=== PATIENT | male | born 1935 | race Caucasian/White ===

== ENCOUNTER 2017-02-04 17:10 | Observation (INO) | payer MEDICARE ==
[2017-02-04] VITALS (7 sets, daily range): BP systolic 153–221; BP diastolic 70–111; PULSE 90–104; RESP 18–20; TEMP 97.6–98.5; O2SAT 90–98
[~2017-02-04] VITALS: Ht 182.9 cm; Wt 90.5 kg
[2017-02-04] MEDS ORDERED: SODIUM CHLOR 0.9% 1000 ML INJ 1,000 ML IV SCH (17:32)
[2017-02-04] MEDS ORDERED: SODIUM CHLORIDE 0.9% FLUSH 10 ML FLUSH IV FLUSH PRN ×2 (17:45→19:45)
--- NOTE | 2017-02-04 17:46 | PD ---
HPI Chief Complaint: Complaint Time Seen by Provider: 17:33 Travel History International Travel<30 days: No Contact w/Intl Traveler<30days: No Traveled to known affect area: No History of Present Illness HPI Patient is an 81-year-old male who was sent to the emergency room from the [place] for evaluation of renal disease. Patient reports that a few weeks ago, he had hematuria, reports that he had a CT of his abdomen and pelvis 2 weeks ago which was inconclusive. Patient reports that he follow-up with his primary care doctor who ordered blood work, is that he call today as his kidney functions were elevated. Patients PCP Dr. Prieto at the [facility] told him to go the ER for evaluation. Patient with no complaints at this time. [facility] Social History Tobacco Use: No Allergies-Medications (Allergen,Severity, Reaction): Coded Allergies: No Known Allergies (Unverified , 02/04/17) Reported Meds & Prescriptions Reported Meds & Active Scripts Active Reported Nifedipine ER (Nifedipine) 90 Mg Tab 90 Mg PO DAILY Spiriva Handihaler (Tiotropium Inh) 18 Mcg Cap 18 Mcg INH DAILY 1 capsule = 18 mcg Latanoprost Opth Drops (Latanoprost) 0.005% Drops 1 Drop EACH EYE HS Refrigerate until opened. Symbicort Inh (Budesonide/Formoterol Fumarate) 80-4.5 Mcg/Act Aero 2 Puff INH Q12HR Ventolin Hfa 18 GM Inh (Albuterol Sulfate) 90 Mcg/Act Aer 2 Puff INH Q6H PRN Aleve (Naproxen Sodium) 220 Mg Tab 220 Mg PO DAILY PRN Review of Systems General / Constitutional: No: Fever Eyes: No: Visual changes HENT: No: Headaches Cardiovascular: No: Chest Pain or Discomfort Respiratory: No: Shortness of Breath Gastrointestinal: No: Nausea, Vomiting, Diarrhea, Abdominal Pain Genitourinary: No: Urgency, Frequency, Dysuria, Nocturia, Hematuria, Pelvic Pain, Flank Pain Musculoskeletal: No: Pain Skin: No Rash Neurologic: No: Weakness Psychiatric: No: Depression Endocrine: No: Polydipsia Hematologic/Lymphatic: No: Easy Bruising Physical Exam Narrative GENERAL: nad, nontoxic SKIN: Focused skin assessment warm/dry. HEAD: Atraumatic. Normocephalic. EYES: Pupils equal and round. No scleral icterus. No injection or drainage. ENT: No nasal bleeding or discharge. Mucous membranes pink and moist. NECK: Trachea midline. No JVD. CARDIOVASCULAR: Regular rate and rhythm. No murmur appreciated. RESPIRATORY: No accessory muscle use. Clear to auscultation. Breath sounds equal bilaterally. GASTROINTESTINAL: Abdomen soft, non-tender, nondistended. Hepatic and splenic margins not palpable. MUSCULOSKELETAL: No obvious deformities. No clubbing. No cyanosis. No edema. Patient with no flank pain on exam NEUROLOGICAL: Awake and alert. No obvious cranial nerve deficits. Motor grossly within normal limits. Normal speech. PSYCHIATRIC: Appropriate mood and affect; insight and judgment normal. Data Data Last Documented VS Vital Signs Date Time Temp Pulse Resp B/P Pulse Ox O2 Delivery O2 Flow Rate FiO2 02/04/17 19:00 90 18 153/70 96 Nasal Cannula 2 02/04/17 17:13 98.5 Orders Complete Blood Count With Diff (02/04/17 17:32) Comprehensive Metabolic Panel (02/04/17 17:32) Prothrombin Time / Inr (Pt) (02/04/17 17:32) Act Partial Throm Time (Ptt) (02/04/17 17:32) Urinalysis - C+S If Indicated (02/04/17 17:32) Ct Abd/Pel W/O Iv Contrast (02/04/17 17:32) Iv Access Insert/Monitor (02/04/17 17:32) Sodium Chlor 0.9% 1000 Ml Inj (Ns 1000 M (02/04/17 17:32) Sodium Chloride 0.9% Flush (Ns Flush) (02/04/17 17:45) Urine Culture (02/04/17 17:40) Admit Order (Ed Use Only) (02/04/17 19:11) Labs Laboratory Tests Test 02/04/17 17:40 White Blood Count 5.0 TH/MM3 Red Blood Count 4.37 MIL/MM3 Hemoglobin 13.0 GM/DL Hematocrit 38.9 % Mean Corpuscular Volume 88.9 FL Mean Corpuscular Hemoglobin 29.6 PG Mean Corpuscular Hemoglobin 33.3 % Concent Red Cell Distribution Width 14.1 % Platelet Count 83 TH/MM3 Mean Platelet Volume 8.2 FL Neutrophils (%) (Auto) 49.7 % Lymphocytes (%) (Auto) 35.9 % Monocytes (%) (Auto) 10.2 % Eosinophils (%) (Auto) 3.4 % Basophils (%) (Auto) 0.8 % Neutrophils # (Auto) 2.5 TH/MM3 Lymphocytes # (Auto) 1.8 TH/MM3 Monocytes # (Auto) 0.5 TH/MM3 Eosinophils # (Auto) 0.2 TH/MM3 Basophils # (Auto) 0.0 TH/MM3 CBC Comment AUTO DIFF Differential Comment AUTO DIFF CONFIRMED Platelet Estimate LOW Platelet Morphology Comment NORMAL Prothrombin Time 12.2 SEC Prothromb Time International 1.1 RATIO Ratio Activated Partial 20.9 SEC Thromboplast Time Urine Color YELLOW Urine Turbidity CLEAR Urine pH 5.5 Urine Specific [place] 1.017 Urine Protein NEG mg/dL Urine Glucose (UA) NEG mg/dL Urine Ketones NEG mg/dL Urine Occult Blood NEG Urine Nitrite NEG Urine Bilirubin NEG Urine Urobilinogen LESS THAN 2.0 MG/DL Urine Leukocyte Esterase NEG Urine RBC 1 /hpf Urine WBC 2 /hpf Urine WBC Clumps RARE Urine Mucus FEW /lpf Microscopic Urinalysis Comment CULTURE INDICATED Sodium Level 139 MEQ/L Potassium Level 4.0 MEQ/L Chloride Level 107 MEQ/L Carbon Dioxide Level 23.7 MEQ/L Anion Gap 8 MEQ/L Blood Urea Nitrogen 34 MG/DL Creatinine 1.87 MG/DL Estimat Glomerular Filtration 35 ML/MIN Rate Random Glucose 109 MG/DL Calcium Level 11.8 MG/DL Protein Corrected Calcium 10.9 MG/DL Total Bilirubin 2.4 MG/DL Aspartate Amino Transf 32 U/L (AST/SGOT) Alanine Aminotransferase 39 U/L (ALT/SGPT) Alkaline Phosphatase 74 U/L Total Protein 8.5 GM/DL Albumin 3.7 GM/DL [facility] Medical Decision Making Medical Screen Exam Complete: Yes Emergency Medical Condition: Yes Interpretation(s) Vital Signs Date Time Temp Pulse Resp B/P Pulse Ox O2 Delivery O2 Flow Rate FiO2 02/04/17 17:33 107 18 02/04/17 17:33 104 18 221/98 98 Room Air 02/04/17 17:13 98.5 106 17 183/111 98 Differential Diagnosis Kidney stone, pyelonephritis, cystitis, renal insufficiency, obstructive uropathy Narrative Course Patient is an 81-year-old male who presents to emergency room for evaluation of renal failure. Patient reports that he was told by his primary care doctor at [place] [facility] [place] to the emergency room for evaluation of renal failure. Patient is unsure what his BUN/creatinine is. Patient with no complaints at this time. Patient does admit to having hematuria a few weeks ago, reports resolution of symptoms at this time. Labs as well as UA and CT of abdomen and pelvis ordered for further evaluation of renal dysfunction. Laboratory Tests Test 02/04/17 17:40 White Blood Count 5.0 TH/MM3 (4.0-11.0) Red Blood Count 4.37 MIL/MM3 (4.50-5.90) Hemoglobin 13.0 GM/DL (13.0-17.0) Hematocrit 38.9 % (39.0-51.0) Mean Corpuscular Volume 88.9 FL (80.0-100.0) Mean Corpuscular Hemoglobin 29.6 PG (27.0-34.0) Mean Corpuscular Hemoglobin 33.3 % Concent (32.0-36.0) Red Cell Distribution Width 14.1 % (11.6-17.2) Platelet Count 83 TH/MM3 (150-450) Mean Platelet Volume 8.2 FL (7.0-11.0) Neutrophils (%) (Auto) 49.7 % (16.0-70.0) Lymphocytes (%) (Auto) 35.9 % (9.0-44.0) Monocytes (%) (Auto) 10.2 % (0.0-8.0) Eosinophils (%) (Auto) 3.4 % (0.0-4.0) Basophils (%) (Auto) 0.8 % (0.0-2.0) Neutrophils # (Auto) 2.5 TH/MM3 (1.8-7.7) Lymphocytes # (Auto) 1.8 TH/MM3 (1.0-4.8) Monocytes # (Auto) 0.5 TH/MM3 (0-0.9) Eosinophils # (Auto) 0.2 TH/MM3 (0-0.4) Basophils # (Auto) 0.0 TH/MM3 (0-0.2) CBC Comment AUTO DIFF Prothrombin Time 12.2 SEC (9.8-11.6) Prothromb Time International 1.1 RATIO Ratio Activated Partial 20.9 SEC Thromboplast Time (24.3-30.1) Urine Color YELLOW (YELLW/STRAW) Urine Turbidity CLEAR (CLEAR) Urine pH 5.5 (5.0-8.5) Urine Specific [place] 1.017 (1.002-1.035) Urine Protein NEG mg/dL (NEG-TRACE) Urine Glucose (UA) NEG mg/dL (NEG) Urine Ketones NEG mg/dL (NEG) Urine Occult Blood NEG (NEG) Urine Nitrite NEG (NEG) Urine Bilirubin NEG (NEG) Urine Urobilinogen LESS THAN 2.0 MG/DL (LESS THAN 2.0) Urine Leukocyte Esterase NEG (NEG) Urine RBC 1 /hpf (0-3) Urine WBC 2 /hpf (0-5) Urine WBC Clumps RARE (NONE) Urine Mucus FEW /lpf (OCC) Microscopic Urinalysis Comment CULTURE INDICATED Sodium Level 139 MEQ/L (136-145) Potassium Level 4.0 MEQ/L (3.5-5.1) Chloride Level 107 MEQ/L (98-107) Carbon Dioxide Level 23.7 MEQ/L (21.0-32.0) Anion Gap 8 MEQ/L (5-15) Blood Urea Nitrogen 34 MG/DL (7-18) Creatinine 1.87 MG/DL (0.60-1.30) Estimat Glomerular Filtration 35 ML/MIN (>89) Rate Random Glucose 109 MG/DL (74-106) Calcium Level 11.8 MG/DL (8.5-10.1) Protein Corrected Calcium 10.9 MG/DL (8.5-10.1) Total Bilirubin 2.4 MG/DL (0.2-1.0) Aspartate Amino Transf 32 U/L (15-37) (AST/SGOT) Alanine Aminotransferase 39 U/L (12-78) (ALT/SGPT) Alkaline Phosphatase 74 U/L (45-117) Total Protein 8.5 GM/DL (6.4-8.2) Albumin 3.7 GM/DL (3.4-5.0) Last Impressions Abdomen/Pelvis CT 02/04/17 0500 Signed Impressions: Service Date/Time: Saturday, February 04, 2017 18:02 - CONCLUSION: Splenomegaly and enlarged upper abdominal and retroperitoneal lymph nodes Abnormal appearance of the urinary bladder. Agustín Olivares MD patient with cr 1.87 ct abdomen and pelvis: pt with eccentric wall thickening and wall calcification , worrisome for bladder mass. this was reviewed with patient, copy of ct report was given to patient case reviewed with dr. luciano who accepts pt to service Diagnosis Primary Impression: Renal insufficiency Additional Impression: Bladder mass Admitting Information Admitting Physician Requests: Admit Janell Ospina DO February 04, 2017 17:45
[2017-02-04 17:58] LABS: AUTOMATED NEUTROPHIL # 2.5 TH/MM3 (1.8-7.7); BASOPHIL % 0.8 % (0.0-2.0); EOSINOPHIL # 0.2 TH/MM3 (0-0.4); EOSINOPHIL % 3.4 % (0.0-4.0); HEMATOCRIT 38.9 % (39.0-51.0); LYMPH % 35.9 % (9.0-44.0); LYMPHOCYTE # 1.8 TH/MM3 (1.0-4.8); MEAN CELL VOLUME 88.9 FL (80.0-100.0); MEAN CORPUSCULAR HEMOGLOBIN 29.6 PG (27.0-34.0); MEAN CORPUSCULAR HGB CONC 33.3 % (32.0-36.0); MONO % 10.2 % (0.0-8.0); NEUT % 49.7 % (16.0-70.0); PLATELET COUNT 83 TH/MM3 (150-450); RED BLOOD COUNT 4.37 MIL/MM3 (4.50-5.90); RED CELL DISTRIBUTION WIDTH 14.1 % (11.6-17.2)
[2017-02-04 18:03] LABS: BLOOD, URINE NEG (NEG); COMMENT (UR) CULTURE INDICATED; CULTURE IF INDICATED CULTURE INDICATED; GLUCOSE,URINE NEG (NEG); HEMO FLAGS AUTO DIFF; KETONE, URINE NEG (NEG); MUCUS URINE FEW /lpf (OCC); NITRITE,URINE NEG (NEG); PH, URINE 5.5 (5.0-8.5); URINE COLOR YELLOW (YELLW/STRAW)
[2017-02-04 18:11] LABS: APTT (PATIENT) 20.9 SEC (24.3-30.1); INTERNATIONAL NORMALIZED RATIO 1.1 RATIO; PROTHROMBIN TIME - PATIENT 12.2 SEC (9.8-11.6)
[2017-02-04 18:24] LABS: BICARBONATE 23.7 MEQ/L (21.0-32.0); CALCIUM-PROTEIN CORRECTED 10.9 MG/DL (8.5-10.1); TOTAL BILIRUBIN ADULT 2.4 MG/DL (0.2-1.0)
--- NOTE | 2017-02-04 18:35 | RADRPT ---
EXAM DATE/TIME: 02/04/2017 18:02 [facility] COMPARISON: No previous studies available for comparison. INDICATIONS : Hematuria for two weeks, possible renal failure ORAL CONTRAST: No oral contrast ingested. RADIATION DOSE: 19.96 CTDIvol (mGy) MEDICAL HISTORY : Hypertension. Chronic obstructive pulmonary disease. SURGICAL HISTORY : umbilical hernia repair ENCOUNTER: Initial ACUITY: 2 weeks PAIN SCALE: 8/10 LOCATION: abdomen TECHNIQUE: Volumetric scanning of the abdomen and pelvis was performed. Using automated exposure control and ad justment of the mA and/or kV according to patient size, radiation dose was kept as low as reasonably achievable to obtain optimal diagnostic quality images. FINDINGS: LOWER LUNGS: There are fibrotic changes in the visualized posterior lung bases LIVER: There are enlarged hepatic hilar lymph nodes and portacaval lymph nodes identified the largest couple measuring over 15 mm in short axis dimension. Homogeneous density without lesion. There is no dilat ion of the biliary tree. Minimally distended gallbladder with possible mild wall thickening.. SPLEEN: Pronounced enlargement. No focal splenic mass PANCREAS: Within normal limits. KIDNEYS: Normal in size and shape. There is no mass, stone, or hydronephrosis. ADRENAL GLANDS: Within normal limits. VASCULAR: There is no aortic aneurysm. BOWEL/MESENTERY: The stomach, small bowel, and colon demonstrate no acute abnormality. There is no free intraperitone al air or fluid. ABDOMINAL WALL: Previous mesh ventral hernia repair. RETROPERITONEUM: Mild prominence of upper abdominal para-aortic lymph nodes BLADDER: Areas of eccentric wall thickening and wall calcification, most conspicuously in the posterior latera l left bladder base worrisome for bladder mass. REPRODUCTIVE: Prostate enlargement impressing the bladder base separate from the above-described INGUINAL: There is no lymphadenopathy or hernia. MUSCULOSKELETAL: Within normal limits for patient age. CONCLUSION: Splenomegaly and enlarged upper abdominal and retroperitoneal lymph nodes Abnormal appearance of the urinary bladder. Agustín Olivares MD on February 04, 2017 at 18:26 Board Certified Radiologist. This report was verified electronically.
[2017-02-04] MEDS ORDERED: NAPR220T95 PO (18:53)
[2017-02-04] MEDS ORDERED: SYMB80AE INH (18:53)
[2017-02-04] MEDS ORDERED: LATA0.002 EACH EYE (18:53)
[2017-02-04] MEDS ORDERED: NIFE90TA2 PO (18:53)
[2017-02-04] MEDS ORDERED: SPIRCAP INH (18:53)
[2017-02-04] MEDS ORDERED: VENTAER INH (18:53)
[2017-02-04 18:56] LABS: PLATELET ESTIMATE SMEAR LOW (NORMAL); PLATELET MORPHOLOGY NORMAL (NORMAL); SCAN/DIFF AUTO DIFF CONFIRMED
[2017-02-04] MEDS ORDERED: NALOXONE HCL 0.4 MG/ML AMP IV PRN (19:45)
--- NOTE | 2017-02-04 19:59 | HHI.HP ---
[facility] Non[facility]Staff Admission Diagnosis Renal failure, bladder mass Diagnoses: Chief Complaint: sent by PCP for abnormal lab results with hematuria Travel History International Travel<30 Days: No Contact w/Intl Traveler <30 Da: No Traveled to Known Affected Are: No History of Present Illness This is an 81 year old patient with a past medical history which includes HTN, COPD and ITP. Patient was sent by PCP at the [facility] due to abnormal lab work, elevated creatinine. Patient reports 3 weeks ago he had gross hematuria x 1 day since then has had a, "slight pink color in urine." Denies lower back pain , dysuria or difficulty urinating. Patient has had an abd/pelvic CT scan with contrast 2 weeks ago. Patient reports that PCP found a bladder polyp. Then today patient had abnormal labs work elevated creatinine and was instructed by his PCP to come to the hospital. Patient also reports that he has noticed progressive weakness and shortness of breath with exertion Patient reports he has lost weight recently unsure of amount, reports he and are participating in Weight Watchers diet Patient denies N/V/D blood in stools, lower extremity edema, chest pain, fevers or chills. Review of Systems Except as stated in HPI: all other systems reviewed are Neg Past Family Social History Past Medical History HTN, COPD Past Surgical History Umbilical hernia repair, tonsillectomy as a child Reported Medications Nifedipine ER (Nifedipine) 90 Mg Tab 90 Mg PO DAILY Spiriva Handihaler (Tiotropium Inh) 18 Mcg Cap 18 Mcg INH DAILY 1 capsule = 18 mcg Latanoprost Opth Drops (Latanoprost) 0.005% Drops 1 Drop EACH EYE HS Refrigerate until opened. Symbicort Inh (Budesonide/Formoterol Fumarate) 80-4.5 Mcg/Act Aero 2 Puff INH Q12HR Ventolin Hfa 18 GM Inh (Albuterol Sulfate) 90 Mcg/Act Aer 2 Puff INH Q6H PRN Aleve (Naproxen Sodium) 220 Mg Tab 220 Mg PO DAILY PRN Allergies: Coded Allergies: No Known Allergies (Unverified , 02/04/17) Active Ordered Medications Current Medications Medications (Trade) Dose Ordered Sig/Conrado Route Start Time Stop Time Status Last Admin Sodium Chloride 2 ml 2 ml UNSCH PRN IV FLUSH 02/04/17 17:45 (NS 1000 ml Inj) 1,000 ml @ 100 mls/hr Q10H IV 02/04/17 19:34 UNV (NS Flush) 2 ml UNSCH PRN IV FLUSH 02/04/17 19:45 UNV (NS Flush) 2 ml BID IV FLUSH 02/04/17 21:00 UNV (Narcan Inj) 0.4 mg UNSCH PRN IV 02/04/17 19:45 UNV Family History Mother in her 90's of, "old age." Father secondary to stomach cancer Social History tobacco use: quit smoking 15 year ago Denies ETOH use or illicit drug use Physical Exam Vital Signs Vital Signs Date Time Temp Pulse Resp B/P Pulse Ox O2 Delivery O2 Flow Rate FiO2 02/04/17 18:30 91 18 195/86 93 Nasal Cannula 2 02/04/17 17:33 107 18 02/04/17 17:33 104 18 221/98 98 Room Air 02/04/17 17:13 98.5 106 17 183/111 98 Physical Exam GENERAL: This is a well-nourished, well-developed patient, in no apparent distress. SKIN: No rashes, ecchymoses or lesions. Cool and dry. HEAD: Atraumatic. Normocephalic. No temporal or scalp tenderness. EYES: Pupils equal round and reactive. Extraocular motions intact. No scleral icterus. No injection or drainage. ENT: Nose without bleeding, purulent drainage or septal hematoma. Throat without erythema, tonsillar hypertrophy or exudate. Uvula midline. Airway patent. NECK: Trachea midline. No JVD or lymphadenopathy. Supple, nontender, no meningeal signs. CARDIOVASCULAR: Regular rate and rhythm without murmurs, gallops, or rubs. RESPIRATORY: bilateral crackles GASTROINTESTINAL: Abdomen soft, non-tender, nondistended. No hepato-splenomegaly , or palpable masses. No guarding. MUSCULOSKELETAL: Extremities without clubbing, cyanosis, or edema. No joint tenderness, effusion, or edema noted. No calf tenderness. Negative Homans sign bilaterally. NEUROLOGICAL: Awake and alert. Cranial nerves II through XII intact. Motor and sensory grossly within normal limits. Five out of 5 muscle strength in all muscle groups. Normal speech. Laboratory Laboratory Tests Test 02/04/17 17:40 White Blood Count 5.0 Red Blood Count 4.37 Hemoglobin 13.0 Hematocrit 38.9 Mean Corpuscular Volume 88.9 Mean Corpuscular Hemoglobin 29.6 Mean Corpuscular Hemoglobin 33.3 Concent Red Cell Distribution Width 14.1 Platelet Count 83 Mean Platelet Volume 8.2 Neutrophils (%) (Auto) 49.7 Lymphocytes (%) (Auto) 35.9 Monocytes (%) (Auto) 10.2 Eosinophils (%) (Auto) 3.4 Basophils (%) (Auto) 0.8 Neutrophils # (Auto) 2.5 Lymphocytes # (Auto) 1.8 Monocytes # (Auto) 0.5 Eosinophils # (Auto) 0.2 Basophils # (Auto) 0.0 CBC Comment AUTO DIFF Differential Comment AUTO DIFF CONFIRMED Platelet Estimate LOW Platelet Morphology Comment NORMAL Prothrombin Time 12.2 Prothromb Time International 1.1 Ratio Activated Partial 20.9 Thromboplast Time Urine Color YELLOW Urine Turbidity CLEAR Urine pH 5.5 Urine Specific [place] 1.017 Urine Protein NEG Urine Glucose (UA) NEG Urine Ketones NEG Urine Occult Blood NEG Urine Nitrite NEG Urine Bilirubin NEG Urine Urobilinogen LESS THAN 2.0 Urine Leukocyte Esterase NEG Urine RBC 1 Urine WBC 2 Urine WBC Clumps RARE Urine Mucus FEW Microscopic Urinalysis Comment CULTURE INDICATED Sodium Level 139 Potassium Level 4.0 Chloride Level 107 Carbon Dioxide Level 23.7 Anion Gap 8 Blood Urea Nitrogen 34 Creatinine 1.87 Estimat Glomerular Filtration 35 Rate Random Glucose 109 Calcium Level 11.8 Protein Corrected Calcium 10.9 Total Bilirubin 2.4 Aspartate Amino Transf 32 (AST/SGOT) Alanine Aminotransferase 39 (ALT/SGPT) Alkaline Phosphatase 74 Total Protein 8.5 Albumin 3.7 Date/Time Procedure Status Source Growth 02/04/17 17:40 Urine Culture Worksheet Urine Clean Catch Pending Result Diagram: 02/04/17 17402/04/17 1740 Imaging Last Impressions Abdomen/Pelvis CT 02/04/17 1732 Signed Impressions: Service Date/Time: Saturday, February 04, 2017 18:02 - CONCLUSION: Splenomegaly and enlarged upper abdominal and retroperitoneal lymph nodes Abnormal appearance of the urinary bladder. Agustín Olivares MD Assessment and Plan Problem List: (1) NELSON (acute kidney injury) ICD Code: N17.9 Status: Acute (2) Bladder mass ICD Code: N32.89 Status: Acute Assessment and Plan This is an 81 year old patient with a past medical history which includes HTN, COPD and ITP. [facility], elevated creatinine. Patient reports 3 weeks ago he had gross hematuria x 1 day since then has had a, "slight pink color in urine." Denies lower back pain , dysuria or difficulty urinating. Patient has had an abd/pelvic CT scan with contrast 2 weeks ago. Patient reports that PCP found a bladder polyp. Then today patient had abnormal labs work elevated creatinine and was instructed by his PCP to come to the hospital. [facility] with patient and - lab work from 01/16/17 reveals: creatinine 1.7, GFR 39 calcium 11.2, hgb 12.8 and plt count 97 NELSON possibly related to resent IV contrast for CT IV hydration avoid nephrotoxins - pt takes advil, reports only twice a week, CT abd/pelvic reviewed and reveals: Splenomegaly and enlarged upper abdominal and retroperitoneal lymph nodes Abnormal appearance of the urinary bladder. 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 DVT prophylaxis with SCDs and TEDs Discussed with ER provider, nursing, patient and patient's Written by Miriam Araiza, acting as scribe for Dr. Pandey on 02/04/17 at 19: 53. This note was transcribed by scribe [ Miriam Araiza]. I, Dr. Dejon Pandey personally performed the history, physical exam, and medical decision making; and confirmed the accuracy of the information in the transcribed note. Authenticated by Dr. Dejon Pandey on 02/04/17 at 19:53. Miriam Araiza February 04, 2017 19:59 Dejon Pandey MD February 05, 2017 07:42 DVT prophylaxis with SCDs and TEDs Discussed with ER provider, nursing, patient and patient's Written by Miriam Araiza, acting as scribe for Dr. Pandey on 02/04/17 at 19: 53. Miriam Araiza February 04, 2017 19:59
[2017-02-04] MEDS ORDERED: ALBUTEROL SULFATE 90 MCG/ACT HFA 18 GM INHALER INH PRN (20:15)
[2017-02-04] MEDS ORDERED: LATANOPROST 0.005% OPHT SOLN 2.5 ML BTL EACH EYE SCH (21:00)
[2017-02-04] MEDS: SODIUM CHLORIDE 0.9% FLUSH 10 ML FLUSH IV FLUSH SCH (21:00)
--- NOTE | 2017-02-04 21:19 | RADRPT ---
EXAM DATE/TIME: 02/04/2017 20:47 [facility] COMPARISON: CT ABDOMEN & PELVIS W/O CONTRAST, February 04, 2017, 18:02. INDICATIONS : Short of breath. MEDICAL HISTORY : Hypertension. Chronic obstructive pulmonary disease. SURGICAL HISTORY : Umbilical hernia repair ENCOUNTER: Initial ACUITY: 2 days PAIN SCORE: 0/10 LOCATION: Bilateral chest FINDINGS: There are interstitial disease changes predominantly in the lung bases, left worse than right. No brian dence of alveolar consolidation or pleural effusion. Cardiac contours are satisfactory for technique and projection. CONCLUSION: Basilar interstitial changes. Agustín Olivares MD on February 04, 2017 at 21:16 Board Certified Radiologist. This report was verified electronically.
[2017-02-04] MEDS: SODIUM CHLOR 0.9% 1000 ML INJ 1,000 ML IV SCH (21:32)
[2017-02-04] MEDS: BUDESONIDE-FORMOTEROL 80/4.5 MCG INHALER INH SCH (21:55)
[2017-02-05 05:38] LABS: BASOPHIL % 0.8 % (0.0-2.0); EOSINOPHIL # 0.2 TH/MM3 (0-0.4); EOSINOPHIL % 3.6 % (0.0-4.0); HEMATOCRIT 36.2 % (39.0-51.0); LYMPH % 40.2 % (9.0-44.0); LYMPHOCYTE # 1.7 TH/MM3 (1.0-4.8); MEAN CELL VOLUME 89.4 FL (80.0-100.0); MEAN CORPUSCULAR HEMOGLOBIN 29.6 PG (27.0-34.0); MONO % 8.4 % (0.0-8.0); PLATELET COUNT 76 TH/MM3 (150-450); RED BLOOD COUNT 4.04 MIL/MM3 (4.50-5.90); RED CELL DISTRIBUTION WIDTH 14.1 % (11.6-17.2); WHITE BLOOD COUNT 4.2 TH/MM3 (4.0-11.0)
[2017-02-05 05:45] LABS: HEMO FLAGS AUTO DIFF
[2017-02-05 06:04] LABS: BICARBONATE 24.4 MEQ/L (21.0-32.0); POTASSIUM 3.6 MEQ/L (3.5-5.1)
[2017-02-05 06:08] VITALS: BP 173/82; PULSE 87; RESP 20; TEMP 97.6; O2SAT 92
[2017-02-05] MEDS: SODIUM CHLOR 0.9% 1000 ML INJ 1,000 ML IV SCH (06:12)
[2017-02-05 07:25] VITALS: BP 173/81; PULSE 81; RESP 18; TEMP 97.4; O2SAT 93
[2017-02-05] MEDS: SODIUM CHLORIDE 0.9% FLUSH 10 ML FLUSH IV FLUSH SCH (08:13)
[2017-02-05] MEDS: BUDESONIDE-FORMOTEROL 80/4.5 MCG INHALER INH SCH (08:13)
[2017-02-05] MEDS ORDERED: NIFEDIPINE 90 MG PO SCH (09:00)
[2017-02-05] MEDS ORDERED: NIFEdipine 90 MG SUSTAINED RELEASE TAB PO SCH (09:00)
[2017-02-05] MEDS ORDERED: cloNIDine HCL 0.1 MG TAB PO PRN (09:00)
[2017-02-05] MEDS ORDERED: TIOTROPIUM BROMIDE 18 MCG INH INH SCH (09:00)
[2017-02-05 09:10] LABS: PLATELET ESTIMATE SMEAR LOW (NORMAL); PLATELET MORPHOLOGY NORMAL (NORMAL); SCAN/DIFF AUTO DIFF CONFIRMED
[2017-02-05 09:36] VITALS: BP 174/82; PULSE 90; O2SAT 95
[2017-02-05] MEDS ORDERED: cloNIDine HCL 0.1 MG TAB PO ONE (09:45)
--- NOTE | 2017-02-05 10:00 | MB ---
cc: NANCIE CALL DATE OF CONSULTATION: 02/05/2017 HISTORY OF PRESENT ILLNESS This is a pleasant 81-year-old male who was advised to come to the emergency room based on his PCP's recommendations of abnormal lab work and elevation of his creatinine. The patient has had intermittent gross hematuria and a CT scan performed in the emergency room demonstrated a small left-sided bladder mass on CT scan. There was no evidence of any hydronephrosis or evidence of obstruction. His creatinine today is 1.5. It is unclear what his baseline is. He does also have a history of ITP as well as COPD and hypertension. PAST MEDICAL HISTORY 1. Hypertension. 2. ITP. 3. COPD. PAST SURGICAL HISTORY 1. Umbilical hernia repair. 2. Tonsillectomy as a child. MEDICATIONS For medications please refer to the chart. ALLERGIES No known drug allergies. FAMILY HISTORY Stomach cancer in his father. Mother in her 90s. SOCIAL HISTORY He does have a history of heavy smoking of four packs per day, which he quit 15 years ago. He denies alcohol use. REVIEW OF SYSTEMS Denies chest pain, shortness of breath. Does note some shortness of breath with exertion but denies chest pain. Denies gait disturbances. Does note a history of ITP. Denies any headaches or gait imbalances. Denies skin lesions or rashes. Presently denies any joint pain. Denies any psychiatric history. PHYSICAL EXAMINATION VITAL SIGNS: Temperature 97.4, heart rate 81, respiratory rate 18, blood pressure 173/81. GENERAL: He is a well-developed, well-nourished 81-year-old male in no acute distress. HEENT: Normocephalic, atraumatic. Pupils equal, round and react to light. Extraocular movements intact. NECK: Supple. HEART: Regular rate and rhythm. LUNGS: Clear. ABDOMEN: Soft, nontender, nondistended. : Normal phallus. Testes descended. EXTREMITIES: No cyanosis, clubbing or edema. LABORATORY White count is 4.2, hemoglobin 11.9, hematocrit 36.2, platelet count 76,000. Sodium 141, potassium 3.6, chloride 109, CO2 24.4, BUN 27, creatinine 1.54, glucose 85. Urinalysis shows 1 red cell with 2 white cells. PT 12.2, INR 1.1, PTT 20.9. IMAGING CT scan again shows evidence of a small bladder polyp with some prostatic enlargement and bladder wall thickening. ASSESSMENT This is an 81-year-old male admitted with findings of a small bladder mass on CT scan with bladder wall thickening and prostatic enlargement. RECOMMENDATIONS The patient desires to follow-up in [place] with his urologist next week. He is currently in contact to undergo TURBT. Would recommend addressing his ITP as his platelet count is low and would be ill-advised to proceed with surgery at this point. Platelets are 76,000. Evidence of mild acute renal insufficiency. Continue IV fluids for now. I would recommend starting Flomax for bladder outlet obstruction and history of nocturia 4-5 times with moderate stream. Thank you very much for the consult and allowing me to participate in the care of this patient. Nancie XIE/JONH /8:45 AM /9:38 AM SH[facility]
--- NOTE | 2017-02-05 10:03 | HHI.PR ---
Subjective Remarks Follow-up for hematuria and elevated creatinine. Patient's at bedside. The patient is doing well today. He states that the fluid overnight made him have to urinate quite a bit. He states that he normally has problems with nocturia and was previously on medication for this. He states that the urologist saw him here and said he should be on Flomax. He has an appointment to see a urologist [facility] [place] soon. He feels well at this time. He does report shortness of breath at baseline, denies any acute worsening. Denies any fever, chills, worsening cough. He does follow with a professor of music with the [facility] for COPD, not on home O2. He denies any lower extremity swelling. He reports that his urine has been clear overnight and denies any further bleeding. The patient states that his blood pressure normally runs as high as it is currently with systolic in the 170s. Patient states that he has had dysuria in the past, but no burning with urination currently. Objective Vitals Vital Signs Date Time Temp Pulse Resp B/P Pulse Ox O2 Delivery O2 Flow Rate FiO2 02/05/17 09:36 90 174/82 95 02/05/17 07:25 97.4 81 18 173/81 93 02/05/17 06:08 97.6 87 20 173/82 92 02/04/17 22:58 96 02/04/17 22:40 90 18 95 02/04/17 21:51 97.6 95 20 168/81 90 02/04/17 19:00 90 18 153/70 96 Nasal Cannula 2 02/04/17 18:30 91 18 195/86 93 Nasal Cannula 2 02/04/17 17:33 107 18 02/04/17 17:33 104 18 221/98 98 Room Air 02/04/17 17:13 98.5 106 17 183/111 98 Result Diagram: 02/05/17 0450 02/05/17 0450 Imaging Last Impressions Abdomen/Pelvis CT 02/04/171731 Signed Impressions: Service Date/Time: Saturday, February 04, 2017 18:02 - CONCLUSION: Splenomegaly and enlarged upper abdominal and retroperitoneal lymph nodes Abnormal appearance of the urinary bladder. Agustín Olivares MD Chest X-Ray 02/04/17 0000 Signed Impressions: Service Date/Time: Saturday, February 04, 2017 20:47 - CONCLUSION: Basilar interstitial changes. Agustín Olivares MD Objective Remarks GENERAL: Well-developed well-nourished. In no acute distress. SKIN: Warm and dry. No lesions noted. HEENT: Normocephalic. Pupils equal and round. Mucous membranes pink and moist. CARDIOVASCULAR: Regular rate and rhythm. No murmur appreciated. RESPIRATORY: No accessory muscle use. Clear to auscultation. Coarse breath sounds in the bases. GASTROINTESTINAL: Abdomen soft, non-tender, nondistended. Bowel sounds x4. MUSCULOSKELETAL: No obvious deformities. No clubbing or cyanosis. No edema. NEUROLOGICAL: Awake and alert. No focal neurological deficits. Moves upper and lower extremities spontaneously. Normal speech. PSYCHIATRIC: Appropriate mood and affect; insight and judgment normal. A/P Problem List: (1) NELSON (acute kidney injury) ICD Code: N17.9 Status: Resolved (2) Bladder mass ICD Code: N32.89 Status: Acute Assessment and Plan This is an 81 year old patient with a past medical history which includes HTN, COPD and ITP. [facility], elevated creatinine. Patient reports 3 weeks ago he had gross hematuria x 1 day since then has had a, "slight pink color in urine." Denies lower back pain , dysuria or difficulty urinating. Patient has had an abd/pelvic CT scan with contrast 2 weeks ago. Patient reports that PCP found a bladder polyp. Then today patient had abnormal labs work elevated creatinine and was instructed by his PCP to come to the hospital. [facility] with patient and - lab work from 01/16/17 reveals: creatinine 1.7, GFR 39 calcium 11.2, hgb 12.8 and plt count 97 NELSON? vs dehydration on top of CKD 3: Recent creatinine 1.7, which is likely near the patient's baseline renal function. S/P IV hydration overnight avoid nephrotoxins Creatinine improved to 1.54 with IVF. Improved. Hematuria/bladder mass: Chronic. Recent diagnosis of bladder polyp as outpatient. CT here shows abnormal appearance of the urinary bladder. No further hematuria overnight. Follow-up H&H today for stability, mild hemodilution on repeat CBC today. Urology was consulted, follow-up recommendations, but reportedly patient cleared for continued outpatient follow-up with urology at the [facility]. Hypercalcemia -seems to be related to dehydration Calcium decreased to 10.3 with IVF, improved Thrombocytopenia with history of ITP -platelets essentially stable overnight at 83/76. No further active bleeding seen. 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 Chest x-ray done for coarse bibasilar breath sounds. Chest x-ray shows bibasilar interstitial changes. Continue home Symbicort, Spiriva, and Ventolin as needed. Continue follow- up with pulmonology as outpatient. O2 and nebs as needed. Hypertension, chronically uncontrolled per patient Continue home nifedipine Clonidine 1 and continue as needed Start tamsulosin DVT prophylaxis with SCDs and TEDs Discharge Planning Follow-up BP. Repeat H&H. Follow-up urology recommendations. If workup remains negative and patient remained stable, likely discharge later today. Attending Statement The exam, history, and the medical decision-making described in the above note were completed with the assistance of the mid-level provider. I reviewed and agree with the findings presented. I attest that I had a [id number] encounter with the patient on the same day, and personally performed and documented my assessment and findings in the medical record. Patient has no complaints. He denies any hematuria. He stated that times he would have a pinkish tinge his urine. He stated that he is rescheduled for surgery with the urologist. Otherwise he is making good urine output. Patient is very anxious to go home today. His is at the bedside. Gen NAD CV RRR. no r/m/g Abd soft NDNT Acute on chronic renal insufficiency Hematuria ITP Patient has been in his baseline. Creatinine has improved from his baseline of 1.7. He continues to make good urine output. As per patient's platelet has been stable with no signs of bleeding. Patient to follow with his senior functional analyst in regards to his ITP and surgery since it is stable. Follow-up with the urologist in [place]. Kenan Luu February 05, 2017 10:03 Georgie Saunders MD February 05, 2017 11:47
[2017-02-05] MEDS ORDERED: TAMS5CAP PO (10:04)
[2017-02-05 10:10] VITALS: PULSE 83
[2017-02-05 10:51] LABS: HEMATOCRIT 36.6 % (39.0-51.0)
[2017-02-05 10:52] LABS: REVIEW FLAG FINAL
[2017-02-05 11:25] VITALS: BP 152/87; PULSE 84; RESP 20; TEMP 97.9; O2SAT 93
[2017-02-05 13:31] VITALS: O2SAT 92
[2017-02-05] MEDS ORDERED: RESP: ALBUTEROL 2.5 MG/IPRATROPIUM 0.5 MG NEB (SCH) NEB (14:00)
[2017-02-05] MEDS ORDERED: TAMSULOSIN HCL 0.4 MG CAP PO SCH (21:00)
== END 2017-02-05 15:22 | disposition home or self-care (01) ==
LOC: NEPC 17:10 → NEDA 19:13 → NEPGCP 21:47
PROVIDERS: ADMIT Family Medicine; ATTEND Family Medicine
DX: N32.89 Other specified disorders of bladder (principal); N40.0 Benign prostatic hyperplasia without lower urinary tract symptoms; N17.9 Acute kidney failure, unspecified; R31.9 Hematuria, unspecified; I12.9 Hypertensive chronic kidney disease with stage 1 through stage 4 chronic kidney disease, or unspecified chronic kidney disease; N18.9 Chronic kidney disease, unspecified; E83.52 Hypercalcemia; D69.3 Immune thrombocytopenic purpura; J44.9 Chronic obstructive pulmonary disease, unspecified; Z79.51 Long term (current) use of inhaled steroids; Z87.891 Personal history of nicotine dependence
CPT/HCPCS: 71010; 74176; 80048; 80053; 81001; 85014; 85018; 85025; 85610; 85730; 87086; 94664; 99284; G0378; J7030